=== PATIENT | female | born 1935 | race Caucasian/White ===

== ENCOUNTER 2021-07-12 12:38 | Emergency (ER) | payer MEDICARE, OTHER ==
[~2021-07-12] VITALS: Ht 139.7 cm; Wt 56.0 kg
[~2021-07-12 12:38] MED LIST: ACET-2119 PO; ACIPHEX; ALPR-623 PO; AMLO10TA PO; ASPI81TA47 PO; CALC-1215 PO; HCTZ; HYDR-3686 PO; HYDR200T84 PO; HYDROXYZINE; LEVO50TA PO; MAGN200T PO; METO-539 PO; METOPROLOL TARTRATE; NIASPAN; NITR0.4T SL; NITROQUICK; OMEP20CA4 PO; PREVCR VG; PROP10DR5 EACHEYE; SYNTHROID; VITC500T PO; XANAX; ZOLP10TA5 PO; ZOLPIDEM; [UNRECOGNIZED DRUG - OTHER]; [UNRECOGNIZED DRUG - OTHER] PO
[2021-07-12 12:49] VITALS: BP 147/74
[2021-07-12] MEDS ORDERED: traMADol 50MG tablet PO ONE (14:35)
[2021-07-12] MEDS ORDERED: ONDA4TAB12 PO (14:36)
[2021-07-12] MEDS ORDERED: TRAM50TA2 PO (14:36)
[2021-07-12] MEDS ORDERED: LIDO700A32 TOP (15:22)
== END 2021-07-12 15:42 | disposition home or self-care (01) ==
LOC: ER 12:38
DX: S86.811A Strain of other muscle(s) and tendon(s) at lower leg level, right leg, initial encounter (principal); S20.211A Contusion of right front wall of thorax, initial encounter; I25.10 Atherosclerotic heart disease of native coronary artery without angina pectoris; I10 Essential (primary) hypertension; K21.9 Gastro-esophageal reflux disease without esophagitis; E03.9 Hypothyroidism, unspecified; Z98.890 Other specified postprocedural states; Z88.5 Allergy status to narcotic agent; Z88.8 Allergy status to other drugs, medicaments and biological substances; Z79.82 Long term (current) use of aspirin; Z79.899 Other long term (current) drug therapy; W19.XXXA Unspecified fall, initial encounter; Y93.89 Activity, other specified; Y92.89 Other specified places as the place of occurrence of the external cause; Y99.8 Other external cause status
CPT/HCPCS: 71045; 73564; 99284

== ENCOUNTER 2023-10-22 05:32 | Observation (INO) | payer MEDICARE, OTHER ==
[2023-10-16 11:20] LABS: BASOPHILS # (AUTO) 0.1 X10'3 (0-0.2); BASOPHILS % (AUTO) 0.9 % (0-1); EOSINOPHILS # (AUTO) 0.2 X10'3 (0-0.9); EOSINOPHILS % (AUTO) 2.1 % (0-6); LYMPHOCYTES # (AUTO) 1.3 X10'3 (1.1-4.8); LYMPHOCYTES % (AUTO) 17.4 % (21-51); MEAN CORPUSCULAR HEMOGLOBIN 33.9 PG (27.0-31.0); MEAN CORPUSCULAR HGB CONC 34.1 g/dL (33.0-36.5); MEAN CORPUSCULAR VOLUME 99.3 FL (78-98); MEAN PLATELET VOLUME 6.7 FL (7.4-10.4); MONOCYTES # (AUTO) 0.9 X10'3 (0-0.9); MONOCYTES % (AUTO) 11.6 % (2-12); PRE OP HEMATOCRIT 39.6 % (35.0-45.0); PRE OP HEMOGLOBIN 13.5 g/dL (12.0-16.0); PRE OP PLATELET COUNT 270 X10'3 (140-440); PRE OP WHITE BLOOD COUNT 7.4 10'3 (4.8-10.8); RED BLOOD COUNT 3.98 X10'6 (4.20-5.60); RED CELL DISTRIBUTION WIDTH 12.7 % (11.5-14.5)
[2023-10-16 11:48] LABS: ALBUMIN/GLOBULIN RATIO 1.1 (1.1-1.5); ALKALINE PHOSPHATASE 42 IU/L (46-116); BLOOD UREA NITROGEN 28 MG/DL (7-18); BUN/CREATININE RATIO 35.9 (10.0-20.0); CALCIUM 9.6 MG/DL (8.5-10.1); CHLORIDE 101 MMOL/L (99-107); CREATININE 0.78 MG/DL (0.40-0.90); PRE OP ANION GAP 6 (8-16); PRE OP AST 18 U/L (10-37); PRE OP BILIRUB, TOTAL 0.3 MG/DL (0.0-1.0); PRE OP GLUCOSE 103 MG/DL (70-104); PRE OP SODIUM 133 MMOL/L (135-145); TOTAL CARBON DIOXIDE 25.6 MMOL/L (24-32); TOTAL PROTEIN 7.7 G/DL (6.4-8.2); eGFR 70 ML/MIN
[2023-10-16 11:51] LABS: PRE OP ALT 24 U/L (30-65)
[2023-10-22] VITALS (23 sets, daily range): BP systolic 140–180; BP diastolic 63–99; PULSE 53–122; RESP 13–25; TEMP 97.2–97.8; O2SAT 93–100
[~2023-10-22] VITALS: Ht 139.7 cm; Wt 56.5 kg
[2023-10-22] MEDS: famotidine 20mg tablet PO ONE (05:30)
[~2023-10-22 05:32] MED LIST changes: -ACIPHEX; -ALPR-623 PO; -ASPI81TA47 PO; +BETAMETHASONE TOP; -CALC-1215 PO; +CALCIUM; +DEXL60CA3 PO; +DICL100G59 TOP; +ESTRADIOL VG; +FLAXSEED; -HCTZ; +HYDR200T73 PO; -HYDR200T84 PO; -HYDROXYZINE; +LORA10CA PO; +LOSA50TA64 PO; -MAGN200T PO; -METO-539 PO; -METOPROLOL TARTRATE; +Magnesium; -NIASPAN; -NITR0.4T SL; -NITROQUICK; +NONI JUICE; -OMEP20CA4 PO; -PREVCR VG; -SYNTHROID; +VIT D3; -XANAX; -ZOLPIDEM; +[UNRECOGNIZED DRUG - MIXTURE]; -[UNRECOGNIZED DRUG - OTHER]; -[UNRECOGNIZED DRUG - OTHER] PO
[2023-10-22] MEDS: cefazolin 2gm/D5W 100mL 100 ML IV ONE (05:59)
[2023-10-22] MEDS: ringers solution, lacted 1,000 ML IV SCH ×2 (05:59→09:34)
[2023-10-22] MEDS ORDERED: MIDAZolam 1 MG/ML 5ML VIAL ONE (07:13)
[2023-10-22] MEDS ORDERED: fentaNYL /PF 50mcg/ml 5ml ampule ONE (07:13)
[2023-10-22] MEDS ORDERED: ondansetron/PF 4mg/2ml inj ONE (07:14)
[2023-10-22] MEDS ORDERED: propofol inj 20 ML IV ONE (07:14)
[2023-10-22] MEDS ORDERED: acetaminophen 1,000mg/100ml IV 100 ML IV ONE (07:14)
[2023-10-22] MEDS ORDERED: rocuronium 10mg/ml inj IV ONE (07:14)
[2023-10-22] MEDS ORDERED: dexamethasone sod phosphate 4mg/ml inj. ONE (07:14)
[2023-10-22] MEDS ORDERED: LIDOcaine 2% (20mg/ml) 5ml vial ONE (07:14)
[2023-10-22] MEDS ORDERED: ondansetron/PF 4mg/2ml inj IV PRN (07:20)
[2023-10-22] MEDS ORDERED: morphine 2 MG/ML inj. syringe IV PRN (07:20)
[2023-10-22] MEDS ORDERED: hydrALAZINE 20mg/ml inj. IV PRN (07:20)
[2023-10-22] MEDS ORDERED: morphine 4 MG/ML inj SYRINge IV PRN (07:20)
[2023-10-22] MEDS ORDERED: labetalol 20mg/4ml (5mg/ml) syringe IV PRN (07:20)
[2023-10-22] MEDS ORDERED: fentaNYL/PF 50MCG/1 ML 2ML syringe IV PRN ×3 (07:20→08:10)
[2023-10-22] MEDS ORDERED: sevoflurane 250ml liquid IH ONE (07:27)
[2023-10-22] MEDS: BUPIVAcaine/PF 2.5 mg/ml (0.25%) 30ml vial IJ ONE (07:57)
[2023-10-22] MEDS ORDERED: HYDROmorphone/PF 0.2 MG/ML SYRINGE IV PRN ×2 (08:10)
[2023-10-22] MEDS: LIDOcaine 1% 30ml preserv. free vial IJ ONE (08:34)
[2023-10-22] MEDS ORDERED: sugammadex 200mg/2ml injection IV ONE (09:07)
[2023-10-22] MEDS ORDERED: labetalol 20mg/4ml (5mg/ml) syringe IV ONE (09:18)
[2023-10-22] MEDS: fentaNYL/PF 50MCG/1 ML 2ML syringe IV PRN (09:45)
[2023-10-22] MEDS ORDERED: naloxone 0.4 mg/ml inj IV PRN (09:45)
[2023-10-22] MEDS: HYDROmorph/NS 0.2 mg/ml PCA 100 ML IV SCH (10:40)
[2023-10-22] MEDS: normal saline 1000ml 1,000 ML IV SCH (12:40)
[2023-10-22] MEDS: ondansetron/PF 4mg/2ml inj IV PRN (12:48)
[2023-10-22] MEDS: albuterol 2.5 MG/3 ML nebule NEB SCH (15:00)
[2023-10-22] MEDS: proCHLORperazine 10 MG/2 ml inj IV PRN (15:43)
[2023-10-22] MEDS: hydrALAZINE 20mg/ml inj. IV ONE (16:45)
[2023-10-22] MEDS ORDERED: hydrOXYzine 25 MG tablet PO PRN (16:55)
[2023-10-22] MEDS ORDERED: zolpidem 5mg tablet PO PRN (16:55)
[2023-10-22] MEDS ORDERED: DICLOFENAC SODIUM 1% gel 1 APPLIC APPLIC TP PRN (16:55)
[2023-10-22] MEDS: polyvinyl alcohol eye drops 15ML BOTTLE EACHEYE SCH (19:12)
[2023-10-22] MEDS: losartan 50mg tablet PO SCH (19:15)
[2023-10-22] MEDS: acetaminophen 325mg tablet PO SCH (19:18)
[2023-10-22] MEDS: heparin, porcine 5000 units/ml vial SQ SCH (20:43)
[2023-10-23] VITALS (8 sets, daily range): BP systolic 132–181; BP diastolic 56–83; PULSE 94–117; RESP 15–18; TEMP 97–98.6; O2SAT 94–97
[2023-10-23] MEDS: PCA WASTE DOCUMENTATION 1 MG ML MC SCH (06:56)
[2023-10-23] MEDS: levoTHYROXINE 25mcg tablet PO SCH (07:01)
[2023-10-23] MEDS: loratadine 10mg tablet PO SCH (07:01)
[2023-10-23] MEDS: amLODIPine 5mg tablet PO SCH (07:02)
[2023-10-23] MEDS: oxyCODONE/APAP 5-325mg tablet PO PRN (07:10)
[2023-10-23] MEDS ORDERED: hydroxychloroquine 200mg tablet PO SCH (08:00)
[2023-10-23] MEDS: hydrALAZINE 20mg/ml inj. IV ONE (08:13)
[2023-10-23] MEDS ORDERED: ONDA4TAB12 PO (14:45)
[2023-10-23] MEDS ORDERED: PER5325T PO (14:47)
== END 2023-10-23 17:50 | disposition home or self-care (01) ==
LOC: PAS 05:32 → PACU 09:50 → SUR 3N 11:11
PROVIDERS: ADMIT Surgery; ATTEND Surgery
DX: K44.9 Diaphragmatic hernia without obstruction or gangrene (principal); E03.9 Hypothyroidism, unspecified; K21.9 Gastro-esophageal reflux disease without esophagitis; M19.90 Unspecified osteoarthritis, unspecified site; Z79.899 Other long term (current) drug therapy
CPT/HCPCS: 36415; 43282; 71045; 80053; 82948; 85025; 93005; 94640; 94760; 96365; 96366; 96372; 96375; 96376; C1781; G0378; J0131; J0360; J0690; J0780; J1100; J1170; J1644; J2250; J2371; J2405; J2704; J3010; J3490; J7030; J7120; A4615; A4618

== ENCOUNTER 2024-09-09 14:17 | Outpatient (CLI) | payer MEDICARE, OTHER ==
[~2024-09-09 14:17] MED LIST changes: +ONDA-243 PO; +PER5325T PO; +barium sulfate 340gm for oral suspension 1 BOTTLE SUSP.RECON PO ONE
== END 2024-09-09 23:59 | disposition home or self-care (01) ==
LOC: RAD 14:17
PROVIDERS: ATTEND Physician Assistant
DX: K21.9 Gastro-esophageal reflux disease without esophagitis (principal); K44.9 Diaphragmatic hernia without obstruction or gangrene; R13.19 Other dysphagia
CPT/HCPCS: 74220